=== PATIENT | female | born 1975 | race African-American/Black ===

== ENCOUNTER 2016-09-18 12:34 | Day surgery (SDC) | payer BC, OTHER ==
[2016-09-12 14:32] VITALS: BMI 25.6
[2016-09-18] MEDS ORDERED: LIDOCAINE 1%-EPI 1:100,000 30 ML MDV IJ ONE (14:21)
[2016-09-18] MEDS ORDERED: BUPIVACAINE HCL/PF 2.5 MG/ML - 30 ML VIAL IJ ONE (14:21)
[2016-09-18] MEDS ORDERED: BUPIVACAINE HCL/PF 0.5% (5MG/ML) 10 ML VIAL ONE (14:21)
[2016-09-18] MEDS ORDERED: MIDAZOLAM HCL 2 MG/2 ML SINGLE DOSE VIAL ONE (14:25)
[2016-09-18] MEDS ORDERED: ROCURONIUM BROMIDE 50 MG/5 ML VIAL ONE ×3 (14:28→17:03)
[2016-09-18] MEDS ORDERED: PROPOFOL 20 ML ONE ×2 (14:28)
[2016-09-18] MEDS ORDERED: ceFAZolin SODIUM 1 GM VIAL ONE (14:47)
[2016-09-18] MEDS ORDERED: HYDROmorphone HCL/PF 1 MG/ML VIAL (FOR PYXIS CHARGING ONLY) ONE ×2 (15:02→17:49)
[2016-09-18] MEDS ORDERED: METOPROLOL TARTRATE 5 MG/5 ML VIAL ONE (15:10)
[2016-09-18] MEDS ORDERED: ONDANSETRON 4 MG/2 ML VIAL ONE (15:17)
[2016-09-18] MEDS ORDERED: PHENYLEPHRINE HCL 10 MG/1 ML SINGLE DOSE VIAL ONE (15:56)
[2016-09-18] MEDS ORDERED: HYDROmorphone *PCA* 10MG/50ML DISP.SYRIN PCA ONE (16:05)
[2016-09-18] MEDS ORDERED: PROMETHAZINE HCL 25 MG/1 ML VIAL IVPB PRN (16:12)
[2016-09-18] MEDS ORDERED: PROMETHAZINE HCL 25 MG/1 ML VIAL IVPUSH PRN (16:12)
[2016-09-18] MEDS ORDERED: HYDROmorphone *PCA* 10MG/50ML DISP.SYRIN PCA SCH (16:15)
[2016-09-18] MEDS ORDERED: NEOSTIGMINE METHYLSULFATE 0.5 MG/ML - 10 ML MDV ONE (18:15)
[2016-09-18] MEDS ORDERED: ONDANSETRON 4 MG/2 ML VIAL IVPB PRN (19:19)
[2016-09-18] MEDS ORDERED: LACTATED RINGERS SOLUTION 1,000 ML IV SCH (19:30)
[2016-09-18] MEDS: INSULIN SLIDING SCALE (NOVOLOG) 1 VIAL SQ SCH ×3 (19:40→23:35)
--- NOTE | 2016-09-18 20:33 | OP ---
DATE OF OPERATION: 09/18/2016 PROCEDURE: Bilateral reduction mammoplasty. PREOPERATIVE DIAGNOSIS: Bilateral symptomatic micromastia. POSTOPERATIVE DIAGNOSIS: Bilateral symptomatic micromastia. ATTENDING SURGEON: Yayo Robbins MD PEDIATRIC HOSPITALIST: TONJA Bello. ANESTHESIA: General endotracheal anesthesia. DESCRIPTION OF PROCEDURE: Patient was marked in the holding area. Nipples were sited bilaterally at 21 cm from the sternal notch. A bipedicle technique with an inverted T pattern is planned. The patient is marked in the holding area, awake, and aware of the incisions and resulting scars and agrees to proceed. Brought to the operating room. Patient was given sequential compression stockings preoperatively. A gram of Ancef was given preoperatively. She is positioned carefully by surgical anesthesia team and prepped and draped in the standard surgical fashion. A timeout is called. The patient, procedure, and operative sites were verified. Lux catheter had been placed. The nipples are traced with a 45-mm cookie cutter. A bipedicle superior and inferior technique is planned. Pedicle width is 8 cm. The breasts were placed under tourniquet, for which the cookie cutter marked nipple areolas were traced and the pedicles were de-epithelialized with the exception of the nipple areola. At this point, attention was then directed to the left breast, where the skin flaps were elevated medially and laterally. A pedicle was developed from the superior rim of the keyhole and tissue was resected from the superior pole, leaving a dermal and subdermal pedicle superiorly intact. Inferiorly, the pedicle is dermal and glandular attached to the chest wall for its entire length. The skin is then talar tacked. Nipple is temporarily inset and attention was then directed toward the contralateral side where a mirror image procedure is performed. Resection weights are for the larger left side 645 grams and for the right side 604 grams. Nipples are bilaterally reactive with good dermal bleeding. The patient was brought to a seated, upright position. Symmetry of size, shape, and position is excellent. Closure is then performed over 2 size 10 flat BRADLEY drains, brought out through the lateral extent of the incisions. Drains were secured with 2-0 nylon drain suture. Closure was performed with a half-buried mattress of 2-0 nylon suture at the inverted T position, buried deep dermal 3-0 Monocryl suture used for the vertical and horizontal limbs, running subcuticular 3-0 Monocryl sutures used for the vertical and horizontal limbs. The nipple areola is inset with a series of interrupted buried deep dermal 4-0 Monocryl suture followed by a running subcuticular 4-0 Monocryl suture. All tissues appear viable. Dressings were placed with Steri-Strips, 4 x 4 gauze, ABD gauze, and a surgical bra. The patient was awoken from anesthesia and transferred to the recovery room without complication. YAYO ROBBINS M.D. [id number]
[2016-09-18] MEDS ORDERED: INSULIN (NOVOLOG) ASPART 100 UNITS/ML 10ML VIAL ONE (23:24)
[2016-09-18] MEDS: CEFAZOLIN (PRE-DOCKED) 50 ML IVPB SCH (23:34)
[2016-09-19] MEDS: CEFAZOLIN (PRE-DOCKED) 50 ML IVPB SCH (06:18)
[2016-09-19 06:33] VITALS: BP 98/56; PULSE 74; TEMP 98.3
[2016-09-19] MEDS: INSULIN SLIDING SCALE (NOVOLOG) 1 VIAL SQ SCH (07:12)
[2016-09-19] MEDS ORDERED: CEFAZOLIN 1 GM/D5W 50 ML IVPB SCH (14:00)
--- NOTE | 2016-09-22 15:13 | SURG ---
Surgery Aerodynamics Engineer Note Aerodynamics Engineer: Tiffanie Lopez PA-C Date of Service: 09/18/16 Diagnosis: bilateral symptomatic micromastia Procedure: bilateral reduction mammoplasty I was present for the entirety of the operative procedure. For further detail, please refer to operative report. Visit type - Case Type Case Type: Scheduled Admission - Emergency Emergency Visit: No - New patient This patient is new to me today: Yes Date on this admission: 09/22/16 - Critical Care Critical Care patient: No
--- NOTE | 2016-09-24 14:49 | PATH ---
Surgical Pathology Report Patient Name: JASSON CASTRO [facility]. Rec. #: [id number] /Age/Gender: 1975 (Age: 41) / F Account: [id number] Location: [facility] Taken: 09/18/2016 Received: 09/18/2016 Reported: 09/24/2016 Physicians: Yayo Baez Specimen(s) Received A: LEFT BREAST TISSUE AND SKIN B: RIGHT BREAST TISSUE AND SKIN Clinical History None given Final Diagnosis A. BREAST TISSUE AND SKIN, LEFT, EXCISION: BENIGN BREAST TISSUE SHOWING PROLIFERATIVE FIBROCYSTIC CHANGES. SKIN WITH NO PATHOLOGIC FINDINGS. B. BREAST TISSUE AND SKIN, RIGHT, EXCISION: BENIGN BREAST TISSUE. SKIN WITH NO PATHOLOGIC FINDINGS. Electronically Signed Kate Monroe M.D. Gross Description A. Received in formalin, labeled "left breast skin and tissue 646 g," is a 21.0 x 21.0 x 3.5 cm aggregate of multiple zapata-yellow, irregular, unoriented portions of fibroadipose tissue as well as brown, unremarkable skin. Sectioning reveals foci of fibrous tissue. Budget Manager sections are submitted in 3 cassettes. B. Received in formalin, labeled "right breast skin and tissue 606 g," 21.0 x 18.5 x 3.0 cm aggregate of multiple zapata-yellow, irregular, unoriented portions of fibroadipose tissue and brown, unremarkable skin. Sectioning reveals foci of white fibrous tissue. Budget Manager sections are submitted in 3 cassettes. /09/19/201609/19/2016
== END 2016-09-19 09:05 | disposition home or self-care (01) ==
LOC: FASU 12:34 → FM/S 21:39 → FASU 09-19 09:05
PROVIDERS: ATTEND Plastic Surgery
PROC: 0HBV0ZZ Excision of Bilateral Breast, Open Approach (ICD-10-PCS; principal; 2016-09-18 15:02)
DX: N64.82 Hypoplasia of breast (principal); N64.59 Other signs and symptoms in breast; E11.9 Type 2 diabetes mellitus without complications; Z79.4 Long term (current) use of insulin
CPT/HCPCS: 84703; 88305-TC; 94760